=== PATIENT | female | born 1965 | race Caucasian/White ===

== ENCOUNTER 2018-01-28 03:32 | Inpatient (IN) | payer SELFPAY ==
[~2018-01-28] VITALS: Ht 182.9 cm; Wt 88.5 kg
[2018-01-28] MEDS ORDERED: ENOXAPARIN SODIUM 40 MG/0.4 ML DISP.SYRIN SQ SCH (04:15)
[2018-01-28] MEDS ORDERED: VANCOMYCIN IV 1 G in PREMIXED 0 EACH IV SCH (04:15)
[2018-01-28] MEDS ORDERED: TPN/PPN PER PHARMACY IV PRN (04:15)
[2018-01-28] MEDS ORDERED: POTASSIUM CHLORIDE 20 MEQ TAB.PRT.SR PO SCH (04:15)
[2018-01-28] MEDS ORDERED: POTASSIUM CHLORIDE 50 ML IV SCH (04:15)
[2018-01-28 04:43] VITALS: BP 140/60
[2018-01-28] MEDS ORDERED: MAGNESIUM HYDROXIDE 30 ML LIQUID UDC PO PRN (04:45)
[2018-01-28] MEDS ORDERED: MORPHINE SULFATE 2 MG/1 ML DISP.SYRIN IV PRN (04:45)
[2018-01-28] MEDS ORDERED: ACETAMINOPHEN 325 MG TABLET PO PRN (04:45)
[2018-01-28] MEDS ORDERED: ZOLPIDEM 5 MG TABLET PO PRN (04:45)
[2018-01-28] MEDS ORDERED: ONDANSETRON 4 MG/2 ML VIAL IV PRN (04:45)
--- NOTE | 2018-01-28 04:45 | NUR ---
The patient, JANES HANEY, 52 y/o, F admitted by EUGENIA PARSONS MD, was given written information regarding hospital policies, unit procedures and contact persons. Valuables were checked and .
[2018-01-28] MEDS ORDERED: TEMAZEPAM 15 MG CAPSULE PO PRN (05:00)
[2018-01-28] MEDS ORDERED: CEFAZOLIN 2 G in IV DEXTROSE 5% 100 ML IV SCH (06:00)
[2018-01-28] MEDS ORDERED: MUPIROCIN 2% OINT 22 GM TUBE TP SCH (09:00)
[2018-01-28] MEDS ORDERED: FAMOTIDINE 20 MG TABLET PO SCH (09:00)
== END 2018-01-28 05:13 | disposition still patient (30) | DRG 392 ==
LOC: CCUOV 03:32
PROVIDERS: ADMIT Internal Medicine; ATTEND Internal Medicine
DX: R10.9 Unspecified abdominal pain (principal)
CPT/HCPCS: J0690; J3370; J3480; J7060